=== PATIENT | male | born 1965 | race Caucasian/White ===

== ENCOUNTER 2016-10-05 18:23 | Inpatient (IN) | payer OTHER ==
[2016-10-05 18:39] VITALS: BMI 31.3
--- NOTE | 2016-10-05 20:38 | HP ---
COWS - Scale Resting Pulse: 0= [place] 80 or Below Sweatin=Flushed/Facial Moisture Restless Observation: 5= Unable to Sit Still Pupil Size: 2= Moderately Dilated Bone or Joint Aches: 4=Acute Joint/Muscle Pain Runny Nose/ Eye Tearin= None GI Upset > 30mins: 2= Nausea/Diarrhea Tremor Observation: 1= Tremor [place], Not Seen Yawning Observation: 1= 1-2x During Session Anxiety or Irritability: 2=Irritable/Anxious Goose Flesh Skin: 0=Smooth Skin COWS Score: 19 CIWA Score - CIWA Score Nausea/Vomitin Muscle Tremors: 1-None Visible, but [place] Anxiety: 4-Mod. Anxious/Guarded Agitation: 4-Moderately Restless Paroxysmal Sweats: 4-Forehead w/Sweat Beads Orientation: 0-Oriented Tacttile Disturbances: 0-None Auditory Disturbances: 2-Mild Harshness/Frighten Visual Disturbances: 0-None Headache: 3-Moderate CIWA-Ar Total Score: 21 Admission ROS BHS - HPI Chief Complaint: WITHDRAWAL SX'S Allergies/Adverse Reactions: Allergies Allergy/AdvReac Type Severity Reaction Status Date / Time No Known Allergies Allergy Verified 10/05/16 20:31 History of Present Illness: 51 Y.O. MALE WITH OPIOID, COCAINE DEPENDENCE, ALCOHOLISM AND CANNABIS ABUSE ADMITTED FOR DETOX TXMENT. CLIENT STATES LAST DETOX 1 YEAR AGO. HE IS NEW TO [facility]. REPORTS LONGEST DRUG FREE PERIOD WAS 30 YEARS WHILE INCARCERATED. Exam Limitations: No Limitations - Ebola screening Have you traveled outside of the country in the last 21 days: No Have you had contact with anyone from an Ebola affected area: No Have you been sick,other than usual withdrawal symptoms: No Do you have a fever: No - Review of Systems Constitutional: Chills, Malaise, Night Sweats EENT: reports: Dental Problems (DENTAL PAIN) Respiratory: reports: Shortness of Breath Cardiac: reports: No Symptoms Reported GI: reports: Diarrhea : reports: No Symptoms Reported Musculoskeletal: reports: Joint Pain (R SHOULDER DUE TO OLD FX) Integumentary: reports: No Symptoms Reported Endocrine: reports: No Symptoms Reported Hematology: reports: No Symptoms Reported Psychiatric: reports: Anxious, Depressed Other Systems: Reviewed and Negative Patient History - Patient Medical History Hx Anemia: No Hx Asthma: No Hx Chronic Obstructive Pulmonary Disease (COPD): No Hx Cancer: No Hx Cardiac Disorders: No Hx Congestive Heart Failure: No Hx Hypertension: No Hx Hypercholesterolemia: No Hx Pacemaker: No HX Cerebrovascular Accident: No Hx Seizures: No Hx Dementia: No Hx Diabetes: No Hx Gastrointestinal Disorders: No Hx Liver Disease: No Hx Genitourinary Disorders: No Hx Sexually Transmitted Disorders: No Hx Renal Disease (ESRD): No Hx Thyroid Disease: No Hx Human Immunodeficiency Virus (HIV): No Hx Hepatitis C: No Hx Depression: Yes (NO MEDS) Hx Suicide Attempt: No Hx Bipolar Disorder: No Hx Schizophrenia: No Other Medical History: ANXIETY - Patient Surgical History Past Surgical History: Yes Hx Appendectomy: Yes Hx Cholecystectomy: Yes Hx Orthopedic Surgery: Yes (RLE FX) Anesthesia Reaction: No - PPD History Previous Implant?: Yes Documented Results: Negative w/o proof Implanted On Prior [facility] Admission?: No PPD to be Administered?: Yes - Smoking Cessation Smoking history: Never smoked Hx Chewing Tobacco Use: No Initiated information on smoking cessation: No - Substance & Tx. History Hx Alcohol Use: Yes Hx Substance Use: Yes Substance Use Type: Alcohol, Cocaine, Heroin, Marijuana Hx Substance Use Treatment: Yes ([facility]) - Substances Abused HEROIN Route: Inhalation Frequency: Daily Amount used: 15 BAGS Age of first use: 43 Date of Last Use: 10/05/16 RUM Route: Oral Frequency: 3-6 times per week Amount used: 1 PINT/4X WK Age of first use: 10 Date of Last Use: 10/05/16 COCAINE Route: Smoking Frequency: Daily Amount used: $150/D Age of first use: 19 Date of Last Use: 10/05/16 THC Route: Smoking Frequency: 3-6 times per week Amount used: 2 JOINTS Age of first use: 10 Date of Last Use: 10/05/16 Family Disease History - Family Disease History Family Disease History: CA: Sister (BONE/ ) Admission Physical Exam S - Vital Signs Vital Signs: Vital Signs - 24 hr 10/05/16 18:36 Temperature 97.3 F L Pulse Rate 78 Respiratory 18 Rate Blood Pressure 155/89 - Physical General Appearance: Yes: Mild Distress, Anxious HEENTM: Yes: EOMI, Normocephalic, Normal Voice, JENNIFER, Pharynx Normal, Nasal Congestion Respiratory: Yes: Chest Non-Tender, Lungs Clear, Normal Breath Sounds, No Respiratory Distress, No Accessory Muscle Use Neck: Yes: No masses,lesions,Nodules, Supple, Trachea in good position Breast: Yes: Breast Exam Deferred Cardiology: Yes: Regular Rhythm, Regular Rate, S1, S2 Abdominal: Yes: Normal Bowel Sounds, Non Tender, Soft Genitourinary: Yes: Within Normal Limits Back: Yes: Normal Inspection Musculoskeletal: Yes: Other (LROM TO R SHOULDER 2/2 PAIN/ FX) Extremities: Yes: Normal Capillary Refill, Non-Tender, Tremors Neurological: Yes: security strategist II-XII NML intact, Fully Oriented, Alert Integumentary: Yes: Within Normal Limits Lymphatic: Yes: Within Normal Limits - Diagnostic (1) Right shoulder pain Current Visit: Yes Status: Chronic (2) Alcohol dependence with uncomplicated withdrawal Current Visit: Yes Status: Acute (3) Opioid dependence with withdrawal Current Visit: Yes Status: Acute (4) Cocaine dependence, uncomplicated Current Visit: Yes Status: Acute (5) Cannabis dependence, uncomplicated Current Visit: Yes Status: Acute Cleared for Admission [facility] - Detox or Rehab [facility] Level of Care: Medically Managed Detox Regimen/Protocol: Methadone/Librium [facility] Breath Alcohol Content Breath Alcohol Content: 0 Urine Drug Screen - Results Drug Screen Negative: No Urine Drug Screen Results: ROHIT-Cocaine, OPI-Opiates, AMP-Amphetamines
[2016-10-05] MEDS ORDERED: MAG HYDROX/AL HYDROX/SIMETH 30 ML UNIT-DOSE CUP PO PRN (20:50)
[2016-10-05] MEDS ORDERED: MAGNESIUM HYDROX 2400MG/30ML ORAL SUSPENSION 30 ML CUP PO PRN (20:50)
[2016-10-05] MEDS ORDERED: chlordiazePOXIDE HCL 25 MG CAPSULE PO PRN (20:50)
[2016-10-05] MEDS ORDERED: hydrOXYzine PAMOATE 50 MG CAPSULE (FP) PO PRN (20:50)
[2016-10-05] MEDS ORDERED: METHADONE HCL 10 MG TABLET (FOR DETOX USE ONLY) PO ONE ×2 (20:50→23:00)
[2016-10-05] MEDS ORDERED: LOPERAMIDE HCL 2 MG CAPSULE PO PRN (20:50)
[2016-10-05] MEDS ORDERED: P-EPHED 60MG/TRIPROLIDI 2.5MG TABLET PO PRN (20:50)
[2016-10-05] MEDS ORDERED: MAGNESIUM CITRATE 300 ML BOTTLE PO PRN (20:50)
[2016-10-05] MEDS ORDERED: NICOTINE POLACRILEX 2 MG GUM BC PRN (20:50)
[2016-10-05] MEDS ORDERED: MENTHOL/PHENOL 1 EACH UD MM PRN (20:50)
[2016-10-05] MEDS ORDERED: guaiFENesin/D-METHORPHAN HB 10 ML UNIT-DOSE CUPS PO PRN (20:50)
[2016-10-05] MEDS ORDERED: ACETAMINOPHEN 325 MG TABLET (FP) PO PRN (20:50)
[2016-10-05] MEDS: THIAMINE HCL 100 MG TABLET (FP) PO SCH (22:51)
[2016-10-05] MEDS: chlordiazePOXIDE HCL 25 MG CAPSULE PO SCH (22:52)
[2016-10-05 23:22] LABS: URINE APPEARANCE CLEAR; URINE BILIRUBIN NEGATIVE (NEGATIVE); URINE BLOOD NEGATIVE (NEGATIVE); URINE COLOR LT. YELLOW; URINE GLUCOSE (UA) NEGATIVE (NEGATIVE); URINE KETONE NEGATIVE (NEGATIVE); URINE LEUK ESTERASE NEGATIVE (NEGATIVE); URINE NITRITE NEGATIVE (NEGATIVE); URINE PROTEIN TRACE (NEGATIVE); URINE UROBILINOGEN 0.2 E.U/dl E.U./dl (0.2-1.0)
[2016-10-06] MEDS: chlordiazePOXIDE HCL 25 MG CAPSULE PO SCH ×4 (05:27→22:58)
[2016-10-06] MEDS ORDERED: METHADONE HCL 10 MG TABLET (FOR DETOX USE ONLY) PO SCH (10:00)
--- NOTE | 2016-10-06 10:04 | PN ---
S CIWA - CIWA Score Nausea/Vomitin-No Nausea/No Vomiting Muscle Tremors: 4-Moderate,w/Arms Extend Anxiety: 4-Mod. Anxious/Guarded Agitation: 4-Moderately Restless Paroxysmal Sweats: 1-Minimal Palms Moist Orientation: 0-Oriented Tacttile Disturbances: 3-Moderate Itch/Numb/Burn Auditory Disturbances: 0-None Visual Disturbances: 0-None Headache: 0-None Present CIWA-Ar Total Score: 16 S COWS - Scale Resting Pulse: 0= [place] 80 or Below Sweatin= Chills/Flushing Restless Observation: 3= Extraneous Movement Pupil Size: 2= Moderately Dilated Bone or Joint Aches: 4=Acute Joint/Muscle Pain Runny Nose/ Eye Tearin= Nasal Congestion GI Upset > 30mins: 1= Stomach Cramp Tremor Observation of Outstretched Hands: 2= Slight Tremor Visible Yawning Observation: 1= 1-2x During Session Anxiety or Irritability: 2=Irritable/Anxious Goose Flesh Skin: 0=Smooth Skin COWS Score: 17 [facility] Progress Note (SOAP) Subjective: ANXIETY,SWEATS,CHILLS,INTERMITTENT SLEEP Objective: 10/06/16 10:03 Vital Signs Temperature 98.2 F 10/06/16 06:39 Pulse Rate 53 L 10/06/16 06:39 Respiratory Rate 16 10/06/16 06:39 Blood Pressure 116/73 10/06/16 06:39 O2 Sat by Pulse Oximetry (%) Laboratory Last Values Urine Color Lt. yellow 10/05/16 23:00 Urine Appearance Clear 10/05/16 23:00 Urine pH 5.0 (5.0-8.0) 10/05/16 23:00 Ur Specific [place] >= 1.030 (1.001-1.035) 10/05/16 23:00 Urine Protein Trace (NEGATIVE) H 10/05/16 23:00 Urine Glucose (UA) Negative (NEGATIVE) 10/05/16 23:00 Urine Ketones Negative (NEGATIVE) 10/05/16 23:00 Urine Blood Negative (NEGATIVE) 10/05/16 23:00 Urine Nitrite Negative (NEGATIVE) 10/05/16 23:00 Urine Bilirubin Negative (NEGATIVE) 10/05/16 23:00 Urine Urobilinogen 0.2 e.u/dl E.U./dl (0.2-1.0) 10/05/16 23:00 Ur Leukocyte Esterase Negative (NEGATIVE) 10/05/16 23:00 OTHER LABS PENDING Assessment: 10/06/16 10:04 WITHDRAWAL SX Plan: CONTINUE DETOX
[2016-10-06 10:07] LABS: MCH 30.3 pg (25.7-33.7); MCHC 34.6 g/dl (32.0-35.9); MEAN CELL VOLUME 87.7 fl (80-96); MEAN PLT VOLUME 9.4 fl (7.5-11.1); PLATELET COUNT 217 K/MM3 (134-434); RDW 13.9 % (11.9-15.9)
[2016-10-06 10:16] LABS: ANION GAP 7 (8-16); BILIRUBIN,TOTAL 0.3 mg/dL (0.2-1.0); CO2 27 mmol/L (21-32); GLUCOSE,RANDOM 105 mg/dL (74-106); SGOT/AST 20 U/L (15-37); SGPT/ALT 35 U/L (12-78); TOT PROT 6.3 g/dl (6.4-8.2)
[2016-10-06 10:17] LABS: ALK PHOS 98 U/L (45-117); CALCIUM 8.8 mg/dL (8.5-10.1); CREATININE 1.2 mg/dL (0.7-1.3)
--- NOTE | 2016-10-06 10:21 | EKG ---
Test Reason : Blood Pressure : / mmHG Vent. Rate : 069 BPM Atrial Rate : 069 BPM P-R Int : 122 ms QRS Dur : 088 ms QT Int : 478 ms P-R-T Axes : 058 -30 -53 degrees QTc Int : 512 ms SINUS RHYTHM WITH PREMATURE ATRIAL COMPLEXES LEFT AXIS DEVIATION INFERIOR INFARCT , AGE UNDETERMINED T WAVE ABNORMALITY, CONSIDER ANTEROLATERAL ISCHEMIA PROLONGED QT ABNORMAL ECG NO PREVIOUS ECGS AVAILABLE Confirmed by NAN RIVAS, HEATHER ([id number]) on 10/06/2016 10:21:05 AM Referred By: Confirmed By:HEATHER MONTANA MD
[2016-10-06 10:25] LABS: HIV 1 & 2 AB NEGATIVE; HIV 1 AGp24 NEGATIVE
[2016-10-06] MEDS: PRENATAL VITAMINS W/ FOLIC ACID TABLET (FP) PO SCH (10:56)
--- NOTE | 2016-10-06 11:11 | CONSULT ---
[facility] Psychiatric Consult - Data Date of interview: 10/06/16 Admission source: [facility] Identifying data: First admission to [facility] for this 51 y/o male seeking detox treatment on for alcohol,heroin,cocaine and marijuana dependence.Patient is single without children,domiciled,unemployed and supported on welfare. Substance Abuse History: - Smoking Cessation. Smoking history: Never smoked. Hx Chewing Tobacco Use: No. Initiated information on smoking cessation: No. - Substance & Tx. History. Hx Alcohol Use: Yes. Hx Substance Use: Yes. Substance Use Type: Alcohol, Cocaine, Heroin, Marijuana. Hx Substance Use Treatment: Yes ([facility]). - Substances Abused. HEROIN. Route: Inhalation. Frequency: Daily. Amount used: 15 BAGS. Age of first use: 43. Date of Last Use: 10/05/16. RUM. Route: Oral. Frequency: 3-6 times per week. Amount used: 1 PINT/4X WK. Age of first use: 10. Date of Last Use: 07/12. COCAINE. Route: Smoking. Frequency: Daily. Amount used: $150/D. Age of first use: 19. Date of Last Use: 10/05/16. THC. Route: Smoking. Frequency: 3-6 times per week. Amount used: 2 JOINTS. Age of first use: 10. Date of Last Use: 10/05/16. Confirmed by patient. Medical History: Patient endorses good general health. Psychiatric History: History of two psychiatric hospitalizations at [facility] (2016) and [facility] (2012).Diagnosed with MDD and Anxiety Disorder.Has stopped OPD care for more than one year.Off psychotropic medications (own choice).Mr Lau reports that he used to be on klonopin.No history of suicide attempts. Physical/Sexual Abuse/Trauma History: Patient denies. Mental Status Exam - Mental Status Exam Alert and Oriented to: Time, Place, Person Cognitive Function: Good Patient Appearance: Well Groomed Mood: Hopeful, Euthymic Affect: Appropriate, Normal Range Patient Behavior: Fatigued, Appropriate, Cooperative Speech Pattern: Clear, Appropriate Voice Loudness: Normal Thought Process: Goal Oriented Thought Disorder: Not Present Hallucinations: Denies Suicidal Ideation: Denies Homicidal Ideation: Denies Insight/Judgement: Poor Sleep: Well Appetite: Good Muscle strength/Tone: Normal Gait/Station: Normal Psychiatric Findings - Problem List ([place] 1, 2,3) (1) Alcohol dependence with uncomplicated withdrawal Current Visit: Yes Status: Acute (2) Cannabis dependence, uncomplicated Current Visit: Yes Status: Acute (3) Cocaine dependence, uncomplicated Current Visit: Yes Status: Acute (4) Opioid dependence with withdrawal Current Visit: Yes Status: Acute (5) Right shoulder pain Current Visit: Yes Status: Chronic - Initial Treatment Plan Initial Treatment Plan: Psychoeducation.Detoxification.Observation.
[2016-10-06] MEDS: diphenhydrAMINE HCL 50 MG CAPSULE PO PRN (22:58)
[2016-10-06] MEDS: THIAMINE HCL 100 MG TABLET (FP) PO SCH (22:58)
[2016-10-07] MEDS: chlordiazePOXIDE HCL 25 MG CAPSULE PO SCH ×3 (05:54→17:50)
[2016-10-07] MEDS: PRENATAL VITAMINS W/ FOLIC ACID TABLET (FP) PO SCH (10:49)
[2016-10-07] MEDS: METHADONE HCL 5 MG TABLET (FOR DETOX USE ONLY) PO SCH (10:50)
[2016-10-07] MEDS: IBUPROFEN 400 MG TABLET (FP) PO PRN (10:53)
--- NOTE | 2016-10-07 13:42 | PN ---
[facility] CIWA - CIWA Score Nausea/Vomitin-No Nausea/No Vomiting Muscle Tremors: 4-Moderate,w/Arms Extend Anxiety: 4-Mod. Anxious/Guarded Agitation: 4-Moderately Restless Paroxysmal Sweats: 1-Minimal Palms Moist Orientation: 0-Oriented Tacttile Disturbances: 3-Moderate Itch/Numb/Burn Auditory Disturbances: 0-None Visual Disturbances: 0-None Headache: 0-None Present CIWA-Ar Total Score: 16 S COWS - Scale Resting Pulse: 0= [place] 80 or Below Sweatin= Chills/Flushing Restless Observation: 3= Extraneous Movement Pupil Size: 2= Moderately Dilated Bone or Joint Aches: 4=Acute Joint/Muscle Pain Runny Nose/ Eye Tearin= Nasal Congestion GI Upset > 30mins: 1= Stomach Cramp Tremor Observation of Outstretched Hands: 1= Tremor [place], Not Seen Yawning Observation: 1= 1-2x During Session Anxiety or Irritability: 2=Irritable/Anxious Goose Flesh Skin: 0=Smooth Skin COWS Score: 16 [facility] Progress Note (SOAP) Subjective: ANXIETY,SWEATS/CHILLS, MUSCLE ACHES, FATIGUE. Objective: 10/07/16 13:42 Vital Signs Temperature 96.1 F L 10/07/16 10:35 Pulse Rate 76 10/07/16 10:35 Respiratory Rate 18 10/07/16 10:35 Blood Pressure 99/60 10/07/16 10:35 O2 Sat by Pulse Oximetry (%) Laboratory Last Values WBC 10.0 K/mm3 (4.0-10.0) 10/06/16 07:30 RBC 4.85 M/mm3 (4.00-5.60) 10/06/16 07:30 Hgb 14.7 GM/dL (11.7-16.9) 10/06/16 07:30 Hct 42.6 % (35.4-49) 10/06/16 07:30 MCV 87.7 fl (80-96) 10/06/16 07:30 MCHC 34.6 g/dl (32.0-35.9) 10/06/16 07:30 RDW 13.9 % (11.9-15.9) 10/06/16 07:30 Plt Count 217 K/MM3 (134-434) 10/06/16 07:30 MPV 9.4 fl (7.5-11.1) 10/06/16 07:30 Sodium 143 mmol/L (136-145) 10/06/16 07:30 Potassium 3.9 mmol/L (3.5-5.1) 10/06/16 07:30 Chloride 109 mmol/L (98-107) H 10/06/16 07:30 Carbon Dioxide 27 mmol/L (21-32) 10/06/16 07:30 Anion Gap 7 (8-16) L 10/06/16 07:30 BUN 15 mg/dL (7-18) 10/06/16 07:30 Creatinine 1.2 mg/dL (0.7-1.3) 10/06/16 07:30 Creat Clearance w eGFR > 60 (>60) 10/06/16 07:30 Random Glucose 105 mg/dL (74-106) 10/06/16 07:30 Calcium 8.8 mg/dL (8.5-10.1) 10/06/16 07:30 Total Bilirubin 0.3 mg/dL (0.2-1.0) 10/06/16 07:30 AST 20 U/L (15-37) 10/06/16 07:30 ALT 35 U/L (12-78) 10/06/16 07:30 Alkaline Phosphatase 98 U/L (45-117) 10/06/16 07:30 Total Protein 6.3 g/dl (6.4-8.2) L 10/06/16 07:30 Albumin 3.0 g/dl (3.4-5.0) L 10/06/16 07:30 Urine Color Lt. yellow 10/05/16 23:00 Urine Appearance Clear 10/05/16 23:00 Urine pH 5.0 (5.0-8.0) 10/05/16 23:00 Ur Specific [place] >= 1.030 (1.001-1.035) 10/05/16 23:00 Urine Protein Trace (NEGATIVE) H 10/05/16 23:00 Urine Glucose (UA) Negative (NEGATIVE) 10/05/16 23:00 Urine Ketones Negative (NEGATIVE) 10/05/16 23:00 Urine Blood Negative (NEGATIVE) 10/05/16 23:00 Urine Nitrite Negative (NEGATIVE) 10/05/16 23:00 Urine Bilirubin Negative (NEGATIVE) 10/05/16 23:00 Urine Urobilinogen 0.2 e.u/dl E.U./dl (0.2-1.0) 10/05/16 23:00 Ur Leukocyte Esterase Negative (NEGATIVE) 10/05/16 23:00 RPR Titer Nonreactive (NONREACTIVE) 10/06/16 07:30 HIV 1&2 Antibody Screen Negative 10/06/16 07:30 HIV P24 Antigen Negative 10/06/16 07:30 Assessment: 10/07/16 13:42 WITHDRAWAL SX Plan: CONTINUE DETOX
[2016-10-07] MEDS: chlordiazePOXIDE 5 MG CAPSULE PO SCH (22:36)
[2016-10-07] MEDS: THIAMINE HCL 100 MG TABLET (FP) PO SCH (22:36)
[2016-10-07] MEDS: diphenhydrAMINE HCL 50 MG CAPSULE PO PRN (22:36)
[2016-10-08] MEDS: chlordiazePOXIDE 5 MG CAPSULE PO SCH ×3 (05:43→17:23)
[2016-10-08] MEDS: METHADONE HCL 5 MG TABLET (FOR DETOX USE ONLY) PO SCH (10:45)
[2016-10-08] MEDS: PRENATAL VITAMINS W/ FOLIC ACID TABLET (FP) PO SCH (10:45)
--- NOTE | 2016-10-08 11:42 | PN ---
[facility] Progress Note (SOAP) Subjective: ANXIETY,IRRITABILITY,SWEATS,"WOOZY". Objective: 10/08/16 11:41 Vital Signs Temperature 98 F 10/08/16 09:54 Pulse Rate 65 10/08/16 09:54 Respiratory Rate 20 10/08/16 09:54 Blood Pressure 114/79 10/08/16 09:54 O2 Sat by Pulse Oximetry (%) Laboratory Last Values WBC 10.0 K/mm3 (4.0-10.0) 10/06/16 07:30 RBC 4.85 M/mm3 (4.00-5.60) 10/06/16 07:30 Hgb 14.7 GM/dL (11.7-16.9) 10/06/16 07:30 Hct 42.6 % (35.4-49) 10/06/16 07:30 MCV 87.7 fl (80-96) 10/06/16 07:30 MCHC 34.6 g/dl (32.0-35.9) 10/06/16 07:30 RDW 13.9 % (11.9-15.9) 10/06/16 07:30 Plt Count 217 K/MM3 (134-434) 10/06/16 07:30 MPV 9.4 fl (7.5-11.1) 10/06/16 07:30 Sodium 143 mmol/L (136-145) 10/06/16 07:30 Potassium 3.9 mmol/L (3.5-5.1) 10/06/16 07:30 Chloride 109 mmol/L (98-107) H 10/06/16 07:30 Carbon Dioxide 27 mmol/L (21-32) 10/06/16 07:30 Anion Gap 7 (8-16) L 10/06/16 07:30 BUN 15 mg/dL (7-18) 10/06/16 07:30 Creatinine 1.2 mg/dL (0.7-1.3) 10/06/16 07:30 Creat Clearance w eGFR > 60 (>60) 10/06/16 07:30 Random Glucose 105 mg/dL (74-106) 10/06/16 07:30 Calcium 8.8 mg/dL (8.5-10.1) 10/06/16 07:30 Total Bilirubin 0.3 mg/dL (0.2-1.0) 10/06/16 07:30 AST 20 U/L (15-37) 10/06/16 07:30 ALT 35 U/L (12-78) 10/06/16 07:30 Alkaline Phosphatase 98 U/L (45-117) 10/06/16 07:30 Total Protein 6.3 g/dl (6.4-8.2) L 10/06/16 07:30 Albumin 3.0 g/dl (3.4-5.0) L 10/06/16 07:30 Urine Color Lt. yellow 10/05/16 23:00 Urine Appearance Clear 10/05/16 23:00 Urine pH 5.0 (5.0-8.0) 10/05/16 23:00 Ur Specific [place] >= 1.030 (1.001-1.035) 10/05/16 23:00 Urine Protein Trace (NEGATIVE) H 10/05/16 23:00 Urine Glucose (UA) Negative (NEGATIVE) 10/05/16 23:00 Urine Ketones Negative (NEGATIVE) 10/05/16 23:00 Urine Blood Negative (NEGATIVE) 10/05/16 23:00 Urine Nitrite Negative (NEGATIVE) 10/05/16 23:00 Urine Bilirubin Negative (NEGATIVE) 10/05/16 23:00 Urine Urobilinogen 0.2 e.u/dl E.U./dl (0.2-1.0) 10/05/16 23:00 Ur Leukocyte Esterase Negative (NEGATIVE) 10/05/16 23:00 RPR Titer Nonreactive (NONREACTIVE) 10/06/16 07:30 HIV 1&2 Antibody Screen Negative 10/06/16 07:30 HIV P24 Antigen Negative 10/06/16 07:30 Assessment: 10/08/16 11:41 WITHDRAWAL SX Plan: CONTINUE DETOX
[2016-10-08] MEDS: chlordiazePOXIDE HCL 10 MG CAPSULE PO SCH (22:42)
[2016-10-08] MEDS: THIAMINE HCL 100 MG TABLET (FP) PO SCH (22:42)
[2016-10-08] MEDS: diphenhydrAMINE HCL 50 MG CAPSULE PO PRN (22:44)
[2016-10-09] MEDS: chlordiazePOXIDE HCL 10 MG CAPSULE PO SCH ×3 (06:03→16:45)
[2016-10-09] MEDS ORDERED: METHADONE HCL 10 MG TABLET (FOR DETOX USE ONLY) PO SCH (10:00)
[2016-10-09] MEDS: PRENATAL VITAMINS W/ FOLIC ACID TABLET (FP) PO SCH (10:50)
[2016-10-09] MEDS: IBUPROFEN 400 MG TABLET (FP) PO PRN ×2 (10:51→22:35)
[2016-10-09] MEDS: diphenhydrAMINE HCL 50 MG CAPSULE PO PRN (22:34)
[2016-10-09] MEDS: THIAMINE HCL 100 MG TABLET (FP) PO SCH (22:34)
[2016-10-10] MEDS ORDERED: METHADONE HCL 5 MG TABLET (FOR DETOX USE ONLY) PO SCH (06:00)
[2016-10-10 06:43] VITALS: BP 107/78; PULSE 52; TEMP 96.4
--- NOTE | 2016-10-10 12:57 | DS ---
[facility] Detox Discharge Summary Admission Date: 10/05/16 Discharge Date: 10/10/16 - History Present History: Alcohol Dependence, Cannabis Dependence, Cocaine Dependence, Opioid Dependence Pertinent Past History: Denies - Physical Exam Results Vital Signs: Vital Signs Temperature 96.4 F L 10/10/16 06:42 Pulse Rate 52 L 10/10/16 06:42 Respiratory Rate 16 10/10/16 06:42 Blood Pressure 107/78 10/10/16 06:42 O2 Sat by Pulse Oximetry (%) Pertinent Admission Physical Exam Findings: Withdrawal symptoms Laboratory Tests 10/05/16 10/06/16 10/06/16 23:00 07:30 07:30 WBC 10.0 RBC 4.85 Hgb 14.7 Hct 42.6 MCV 87.7 MCHC 34.6 RDW 13.9 Plt Count 217 MPV 9.4 Sodium 143 Potassium 3.9 Chloride 109 H Carbon Dioxide 27 Anion Gap 7 L BUN 15 Creatinine 1.2 Creat Clearance w eGFR > 60 Random Glucose 105 Calcium 8.8 Total Bilirubin 0.3 AST 20 ALT 35 Alkaline Phosphatase 98 Total Protein 6.3 L Albumin 3.0 L Urine Color Lt. yellow Urine Appearance Clear Urine pH 5.0 Ur Specific [place] >= 1.030 Urine Protein Trace H Urine Glucose (UA) Negative Urine Ketones Negative Urine Blood Negative Urine Nitrite Negative Urine Bilirubin Negative Urine Urobilinogen 0.2 e.u/dl Ur Leukocyte Esterase Negative RPR Titer HIV 1&2 Antibody Screen HIV P24 Antigen 10/06/16 10/06/16 07:30 07:30 WBC RBC Hgb Hct MCV MCHC RDW Plt Count MPV Sodium Potassium Chloride Carbon Dioxide Anion Gap BUN Creatinine Creat Clearance w eGFR Random Glucose Calcium Total Bilirubin AST ALT Alkaline Phosphatase Total Protein Albumin Urine Color Urine Appearance Urine pH Ur Specific [place] Urine Protein Urine Glucose (UA) Urine Ketones Urine Blood Urine Nitrite Urine Bilirubin Urine Urobilinogen Ur Leukocyte Esterase RPR Titer Nonreactive HIV 1&2 Antibody Screen Negative HIV P24 Antigen Negative Labs noted - Treatment Hospital Course: Detox Protocol Followed, Detoxed Safely, Responded well, Discharged Condition Good - Medication Discharge Medications: Ambulatory Orders NK [No Known Home Medication] 10/05/16 - Diagnosis (1) Alcohol dependence with uncomplicated withdrawal Status: Acute (2) Cannabis dependence, uncomplicated Status: Chronic (3) Cocaine dependence, uncomplicated Status: Chronic (4) Opioid dependence with withdrawal Status: Chronic - AMA Did Patient Leave Against Medical Advice: No
== END 2016-10-10 09:25 | disposition home or self-care (01) | DRG 773 ==
LOC: YASAS 18:23 → Y3N 21:32
PROVIDERS: ADMIT Internal Medicine; ATTEND Internal Medicine
PROC: HZ2ZZZZ Detoxification Services for Substance Abuse Treatment (ICD-10-PCS; principal; 2016-10-05)
DX: F11.23 Opioid dependence with withdrawal (principal); F10.230 Alcohol dependence with withdrawal, uncomplicated; F14.20 Cocaine dependence, uncomplicated; F12.20 Cannabis dependence, uncomplicated; M25.511 Pain in right shoulder
CPT/HCPCS: 36415; 80053; 81003; 85027; 86593; 86803; 87389; 93005; 93010